=== PATIENT | male | born 1990 | race Caucasian/White ===

== ENCOUNTER 2020-03-15 13:39 | Emergency (ER) | payer OTHER ==
[~2020-03-15] VITALS: Ht 188 cm; Wt 117.9 kg
--- NOTE | 2020-03-16 15:36 | EKG ---
[facility] [address] [facility] [place] [address] Signed Normal sinus rhythm Pulmonary disease pattern Incomplete right bundle branch block Left anterior fascicular block Abnormal ECG No previous ECGs available Confirmed by VIOLETTE ALMARAZ MD ([id number]) on 03/16/2020 3:36:15 PM Electronically Signed By: VIOLETTE ALMARAZ MD 03/16/20 1536 PATIENT NAME: JESSICA LOFTON Electrocardiogram DATE OF : 86 PHYSICIAN: VIOLETTE ALMARAZ MD REPORT #: [id number] REPORT IS CONFIDENTIAL AND NOT TO BE RELEASED WITHOUT AUTHORIZATION
== END 2020-03-15 16:41 | disposition home or self-care (01) ==
LOC: ED 13:39
DX: J06.9 Acute upper respiratory infection, unspecified (principal); I10 Essential (primary) hypertension; Z87.891 Personal history of nicotine dependence; Z88.0 Allergy status to penicillin; Z20.828 Contact with and (suspected) exposure to other viral communicable diseases
CPT/HCPCS: 71045; 80048; 83605; 85025; 93005; 93010; 94640; 99285-25; C9803; U0002

== ENCOUNTER 2021-06-06 11:37 | Emergency (ER) | payer OTHER ==
[~2021-06-06] VITALS: Ht 188 cm; Wt 117.9 kg
[2021-06-06] MEDS ORDERED: BACTRIM DS TAB1 EACH PO (14:41)
--- NOTE | 2021-06-06 15:50 | EKG ---
[facility] [address] [facility] [place] [address] Signed Normal sinus rhythm Pulmonary disease pattern Incomplete right bundle branch block Left anterior fascicular block Abnormal ECG When compared with ECG of 15-MAR-2020 13:48, No significant change was found Confirmed by LIZANDRO BAH MD ([id number] on 06/06/2021 3:50:15 PM Electronically Signed By: LIZANDRO BAH MD 06/06/21 1550 PATIENT NAME: JESSICA LOFTON Electrocardiogram DATE OF : 86 PHYSICIAN: LIZANDRO BAH MD REPORT #: [id number] REPORT IS CONFIDENTIAL AND NOT TO BE RELEASED WITHOUT AUTHORIZATION
== END 2021-06-06 15:01 | disposition home or self-care (01) ==
LOC: ED 11:37
DX: G51.0 Bell's palsy (principal); L02.412 Cutaneous abscess of left axilla; R29.898 Other symptoms and signs involving the musculoskeletal system; R29.701 NIHSS score 1; I10 Essential (primary) hypertension; Z87.891 Personal history of nicotine dependence
CPT/HCPCS: 70450; 70496; 70498; 70551; 71045; 80053; 85025; 85610; 85730; 93005; 93010; 99285-25; Q9967

== ENCOUNTER 2021-12-08 17:44 | Emergency (ER) | payer OTHER ==
[~2021-12-08] VITALS: Ht 188 cm; Wt 117.9 kg
[~2021-12-08 17:44] MED LIST: BACTRIM DS TAB1 EACH PO
== END 2021-12-08 18:07 | disposition home or self-care (01) ==
LOC: ED 17:44
DX: G51.0 Bell's palsy (principal); I10 Essential (primary) hypertension; Z87.891 Personal history of nicotine dependence; Z79.899 Other long term (current) drug therapy
CPT/HCPCS: 99284